=== PATIENT | female | born 1990 | race Caucasian/White ===

== ENCOUNTER 2020-04-27 04:40 | Emergency (ER) | payer BC ==
[~2020-04-27] VITALS: Ht 157.5 cm; Wt 72.7 kg
[2020-04-27] MEDS ORDERED: NEOMY/BACITR/POLYMYXIN OINT PACKET. TP ONE (05:00)
[2020-04-27] MEDS ORDERED: LIDOCAINE 1% Multi-Dose 20 ML VIAL. INJ ONE (05:00)
[2020-04-27] MEDS ORDERED: ONDANSETRON ODT 4 MG TAB.RAPDIS. PO ONE (05:30)
[2020-04-27 05:41] VITALS: BP 92/60
--- NOTE | 2020-04-27 06:01 | RAD ---
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 The first se ntence should state NO elevation of the fat pads. Electronically signed by: Chidi Chirinos MD (04/27/2020 6:14 AM) [facility] ORIGINAL REPORT Right hand x-rays 3 views HISTORY: Punched a window, pain. FINDINGS: No fracture. No dislocation. No arthritic change. Soft tissues are unremarkable. IMPRESSION: Normal exam. Right wrist x-rays 3 views HISTORY: Punched a window, pain. FINDINGS: No fracture. No dislocation. No arthritic change. The soft tissues are unremarkable. IMPRESSION: Normal exam. Right forearm x-rays 2 views HISTORY: Punched a window, pain. FINDINGS: There is a laceration of the volar forearm soft tissue edema and swelling. No radiopaque fo reign body evident. No fracture or dislocation of the radius and ulna. IMPRESSION: Soft tissue laceration of the forearm. No radiopaque foreign body. No fracture or disloca tion. Right elbow x-rays 3 views HISTORY: Punched a window, pain. FINDINGS: Elevation of the fat pads to suggest a joint effusion or occult fracture. No fracture or di slocation evident. Soft tissues are unremarkable. IMPRESSION: Normal exam. Electronically signed by: Chidi Chirinos MD (04/27/2020 5:59 AM) [facility]
--- NOTE | 2020-04-27 06:01 | RAD ---
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 The first se ntence should state NO elevation of the fat pads. Electronically signed by: Chidi Chirinos MD (04/27/2020 6:14 AM) [facility] ORIGINAL REPORT Right hand x-rays 3 views HISTORY: Punched a window, pain. FINDINGS: No fracture. No dislocation. No arthritic change. Soft tissues are unremarkable. IMPRESSION: Normal exam. Right wrist x-rays 3 views HISTORY: Punched a window, pain. FINDINGS: No fracture. No dislocation. No arthritic change. The soft tissues are unremarkable. IMPRESSION: Normal exam. Right forearm x-rays 2 views HISTORY: Punched a window, pain. FINDINGS: There is a laceration of the volar forearm soft tissue edema and swelling. No radiopaque fo reign body evident. No fracture or dislocation of the radius and ulna. IMPRESSION: Soft tissue laceration of the forearm. No radiopaque foreign body. No fracture or disloca tion. Right elbow x-rays 3 views HISTORY: Punched a window, pain. FINDINGS: Elevation of the fat pads to suggest a joint effusion or occult fracture. No fracture or di slocation evident. Soft tissues are unremarkable. IMPRESSION: Normal exam. Electronically signed by: Chidi Chirinos MD (04/27/2020 5:59 AM) [facility]
--- NOTE | 2020-04-27 06:01 | RAD ---
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 The first se ntence should state NO elevation of the fat pads. Electronically signed by: Chidi Chirinos MD (04/27/2020 6:14 AM) [facility] ORIGINAL REPORT Right hand x-rays 3 views HISTORY: Punched a window, pain. FINDINGS: No fracture. No dislocation. No arthritic change. Soft tissues are unremarkable. IMPRESSION: Normal exam. Right wrist x-rays 3 views HISTORY: Punched a window, pain. FINDINGS: No fracture. No dislocation. No arthritic change. The soft tissues are unremarkable. IMPRESSION: Normal exam. Right forearm x-rays 2 views HISTORY: Punched a window, pain. FINDINGS: There is a laceration of the volar forearm soft tissue edema and swelling. No radiopaque fo reign body evident. No fracture or dislocation of the radius and ulna. IMPRESSION: Soft tissue laceration of the forearm. No radiopaque foreign body. No fracture or disloca tion. Right elbow x-rays 3 views HISTORY: Punched a window, pain. FINDINGS: Elevation of the fat pads to suggest a joint effusion or occult fracture. No fracture or di slocation evident. Soft tissues are unremarkable. IMPRESSION: Normal exam. Electronically signed by: Chidi Chirinos MD (04/27/2020 5:59 AM) [facility]
--- NOTE | 2020-04-27 06:01 | RAD ---
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 The first se ntence should state NO elevation of the fat pads. Electronically signed by: Chidi Chirinos MD (04/27/2020 6:14 AM) [facility] ORIGINAL REPORT Right hand x-rays 3 views HISTORY: Punched a window, pain. FINDINGS: No fracture. No dislocation. No arthritic change. Soft tissues are unremarkable. IMPRESSION: Normal exam. Right wrist x-rays 3 views HISTORY: Punched a window, pain. FINDINGS: No fracture. No dislocation. No arthritic change. The soft tissues are unremarkable. IMPRESSION: Normal exam. Right forearm x-rays 2 views HISTORY: Punched a window, pain. FINDINGS: There is a laceration of the volar forearm soft tissue edema and swelling. No radiopaque fo reign body evident. No fracture or dislocation of the radius and ulna. IMPRESSION: Soft tissue laceration of the forearm. No radiopaque foreign body. No fracture or disloca tion. Right elbow x-rays 3 views HISTORY: Punched a window, pain. FINDINGS: Elevation of the fat pads to suggest a joint effusion or occult fracture. No fracture or di slocation evident. Soft tissues are unremarkable. IMPRESSION: Normal exam. Electronically signed by: Chidi Chirinos MD (04/27/2020 5:59 AM) [facility]
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
== END 2020-04-27 06:32 | disposition home or self-care (01) ==
LOC: ER 04:40
DX: S61.411A Laceration without foreign body of right hand, initial encounter (principal); F10.229 Alcohol dependence with intoxication, unspecified; R60.0 Localized edema; Z90.49 Acquired absence of other specified parts of digestive tract; Z98.51 Tubal ligation status; W25.XXXA Contact with sharp glass, initial encounter; Y93.89 Activity, other specified; Y92.89 Other specified places as the place of occurrence of the external cause; Y99.8 Other external cause status
CPT/HCPCS: 12002; 73080; 73090; 73100; 73130; 99284; J3490